=== PATIENT | female | born 1945 | race Two or more races ===

== ENCOUNTER 2020-12-22 17:37 | Inpatient (IN) | payer MEDICARE, OTHER ==
[~2020-12-22] VITALS: Ht 165.1 cm; Wt 57.2 kg
[2020-12-22] MEDS ORDERED: IV NS 0.9% 2,000 ML IV ONE (18:00)
--- NOTE | 2020-12-22 18:01 | NUR ---
MOVE SHEET SUBMITTED AND CALLED FOR TELE BED.
[2020-12-22 18:09] LABS: BASOPHILS % (AUTO) 0.1 % (0.0-2.0); EOSINOPHILS % (AUTO) 0.3 % (0.0-6.0); HEMATOCRIT 35 % (33-45); LYMPHOCYTES # (AUTO) 1.6 /CMM (0.8-4.8); LYMPHOCYTES % (AUTO) 8.9 % (20.0-44.0); MEAN CORPUSCULAR HGB CONC 32 g/dl (31.0-36.0); MEAN CORPUSCULAR VOLUME 82 fL (82-100); MONOCYTES # (AUTO) 1.5 /CMM (0.1-1.30); MONOCYTES % (AUTO) 8.6 % (2.0-12.0); NEUTROPHILS # (AUTO) 14.3 /CMM (1.8-8.9); NEUTROPHILS % (AUTO) 82.1 % (43.0-81.0); PLATELET COUNT (AUTO) 330 /CMM (150-450); RED BLOOD CELL COUNT(AUTO) 4.21 MIL/uL (4.0-5.2); WHITE BLOOD COUNT (AUTO) 17.5 K/uL (4.3-11.0)
--- NOTE | 2020-12-22 18:19 | NUR ---
pt to ct on [facility]
--- NOTE | 2020-12-22 18:24 | NUR ---
[facility] TO ER BED 7. AAOX2, LETHARGIC. NO IN RESP DISTRESS, BREATHING EVEN AND UNLABORED, SATTING 100ON 2LPM VIA NC. BROUGHT IN FOR ALTERED MENTAL STATUS, WEAKNESS AND HYPOXIA. PT IS REPORTED BASELINE AAOX3 BUT NOT AAOX2 WITH LETHARGY. PT IS REPORTED TO HAVE O2 SAT OF 88% BUT UPON RECEIVED PT IS SATTING 100% ON 2 LPM VIA NC. NO NEURO DEFICIT. ABLE TO FOLLOW SIMPLE COMMANDS. RECTAL TEMP NOTED AT 99.8. MD WAS AT THE BEDSIDE FOR EVAL. ORDERS RECEIVED, NOTED AND CARRIED OUT. IV LINE ALREADY PRESENT ON THE L HAND W/ 22 G. NW IV STARTED ON R AC 20G, BLOOD DRAWN AND GIVEN TO PHLEB AT BEDSIDE. PT ON MONITOR EKG DONE AT BEDSIDE
[2020-12-22 18:25] LABS: ACETAMINOPHEN < 10 ug/ml (10-30); ALANINE AMINOTRANSFERASE 27 U/L (12-78); ALBUMIN 2.7 g/dL (3.4-5.0); ALCOHOL, BLOOD < 3 mg/dL (0-0); ALKALINE PHOSPHATASE 100 U/L (46-116); ASPARTATE AMINOTRANSFERASE 58 U/L (15-37); BILIRUBIN,DIRECT 0.2 mg/dL (0.0-0.2); BILIRUBIN,TOTAL 0.8 mg/dL (0.2-1.0); CALCIUM, SERUM 8.5 mg/dL (8.5-10.1); CARBON DIOXIDE 23 mmol/L (21-32); CHLORIDE 103 mmol/L (98-107); GLUCOSE 86 mg/dL (74-106); POTASSIUM 4.3 mmol/L (3.5-5.1); SODIUM SERUM 138 mmol/L (136-145); TOTAL PROTEIN, SERUM 7.1 g/dL (6.4-8.2); UREA NITROGEN, BLOOD 67 mg/dL (7-18)
[2020-12-22] MEDS ORDERED: IOHEXOL-300 100 ML VIAL IV ONE (18:34)
[2020-12-22] MEDS ORDERED: IV NS 0.9% 250 ML IV ONE (18:35)
[2020-12-22] MEDS ORDERED: CT SWABBABLE VALVE TRANS SET 1 EA INFUS.SET MC ONE (18:35)
[2020-12-22 18:44] LABS: SERUM AMMONIA < 10 umol/L (11-32)
--- NOTE | 2020-12-22 18:55 | NUR ---
BACK FROM CT
--- NOTE | 2020-12-22 19:00 | NUR ---
URINE COLLECTED VIA IN AND OUT CATH WITH STRICT STERILE TECHNIQUE OBSERVED. COVID SWAB ALSO DONE AND SENT TO LAB
[2020-12-22 19:04] LABS: THYROID STIMULATING HORMONE 1.671 uIU/mL (0.358-3.74)
--- NOTE | 2020-12-22 19:20 | NUR ---
PT'S O2 REMOVED AND TOLERATING WELL WITHOUT IT. SATTING @ 100% ON RA
[2020-12-22 19:33] LABS: BILIRUBIN,URINE SMALL (NEGATIVE); COLOR,URINE YELLOW (YELLOW); LEUKOCYTE ESTERASE ,URINE Negative (NEGATIVE); NITRITE, URINE Negative (NEGATIVE); PROTEIN,URINE 30 mg/dl (NEGATIVE); UGLUCOSE Negative (NEGATIVE); UROBILINOGEN,URINE 0.2 EU/dL (0.2)
[2020-12-22 19:43] LABS: WBC,URINE 0-2 /HPF (0-3)
[2020-12-22 19:44] LABS: BACTERIA,URINE Rare /HPF (None Seen); SQUAMOUS EPITHELIAL CELL,UR 0-2 /HPF (None Seen); URINE AMORPHOUS URATE Few /HPF (None Seen)
[2020-12-22] MEDS ORDERED: CIPROFLOXACIN IV RTU 400 MG in PREMIX 1 EA IV SCH (20:00)
[2020-12-22] MEDS ORDERED: FLAGYL/NS RTU 500 MG/100 ML PIGGYBACK IV ONE (20:00)
[2020-12-22] MEDS ORDERED: METRONIDAZOLE 500MG/ NS 100ML 100 ML IV ONE (20:08)
[2020-12-22] MEDS ORDERED: CIPROFLOXACIN IV RTU 200 ML IV ONE (20:08)
--- NOTE | 2020-12-22 20:22 | NUR ---
REPORT GIVEN TO LINCOLN TANNER FOR LAKEISHA
[2020-12-22] MEDS ORDERED: Z GUARD REMEDY 2 OZ OINT TP PRN (20:30)
[2020-12-22] MEDS ORDERED: ZOLPIDEM TARTRATE 5 MG TABLET PO PRN (20:30)
[2020-12-22] MEDS ORDERED: ONDANSETRON HCL/PF 4 MG/2 ML VIAL IVP PRN (20:30)
[2020-12-22] MEDS ORDERED: MAGNESIUM HYDROXIDE 30 ML UDC PO PRN (20:30)
[2020-12-22] MEDS ORDERED: MORPHINE SULFATE INJ 2 MG/ML DISP.SYRIN IV PRN (20:30)
[2020-12-22] MEDS ORDERED: HYDROCODONE/APAP 5/325MG TABLET PO PRN (20:30)
[2020-12-22] MEDS ORDERED: MAG HYDROX/AL HYDROX/SIMETH 30 ML UDC PO PRN (20:30)
[2020-12-22 21:20] VITALS: BP 139/56
--- NOTE | 2020-12-22 21:20 | NUR ---
RN NOTE RECEIVED PATIENT FROM ER VIA EMMANUEL ACCOMPANIED BY ZOEY STARK AND ANOTHER ER STAFF; ADMITTING DIAGNOSIS OF POSSIBLE EARLY SEPSIS, COLITIS PRESENT ON ADMISSION, AND ACUTE ENCEPHALOPATHY, COVID PCR RESULTS PENDING. PATIENT IS CONFUSED, IN NO S/SX OF ACUTE DISTRESS AT THIS TIME. NO SOB NOTED. PATIENT'S BREATHING IS EVEN AND UNLABORED. SATURATION 100% ON ROOM AIR. SR ON THE MONITOR, HR IS 82. NOTED IV SITE AT RAC 20G, AND L HAND 22G(FROM FACILITY); ALL HUBS FLUSHING AND PATENT, NO S/S OF INFECTION OR INFILTRATION. PATIENT KEPT CLEAN , DRY AND COMFORTABLE. SEIZURE PRECAUTIONS, AND SAFETY MEASURES IMPLEMENTED. PATIENT BED ALARM IS ON. HEAD OF BED ELEVATED. BED IS LOCKED, IN LOWEST POSITION AND SIDE RAILS UP. CALL LIGHT WITHIN REACH OF THE PATIENT. ISOLATION PRECAUTIONS IN PLACE. WILL CONTINUE TO MONITOR AND REASSESS FOR ANY CHANGES. TELEPHONE CALL TO RYAN PALOMO AT [phone] TO VERIFY PATIENT FLU AND PNEUMONIA VACCINE STATUS, NO ANSWER AFTER TWO ATTEMPTS. WILL ATTEND TO ALL MD ADMITTING ORDERS.
--- NOTE | 2020-12-22 21:21 | NUR ---
pt trasnproted to unit on [facility] with emt and rn at bedside w/ acls protocol. nad noted during transport.
[2020-12-22] MEDS: ENOXAPARIN SODIUM 30 MG/0.3 ML DISP.SYRIN SQ SCH (22:23)
[2020-12-22] MEDS: IV NS 0.9% 1,000 ML IV PRN (22:24)
[2020-12-23] VITALS: BP 107/48
[2020-12-23 04:00] VITALS: BP 135/54
[2020-12-23] MEDS: METRONIDAZOLE 500MG/ NS 100ML 500 MG in PREMIX 1 EA IV SCH ×3 (04:35→20:17)
[2020-12-23 06:36] LABS: BASOPHILS % (AUTO) 0.2 % (0.0-2.0); EOSINOPHILS % (AUTO) 0.1 % (0.0-6.0); HEMATOCRIT 33 % (33-45); HEMOGLOBIN 10.5 g/dL (11.5-14.8); LYMPHOCYTES % (AUTO) 6.1 % (20.0-44.0); MEAN CORPUSCULAR HGB CONC 32 g/dl (31.0-36.0); MEAN CORPUSCULAR VOLUME 83 fL (82-100); MONOCYTES # (AUTO) 1.3 /CMM (0.1-1.30); MONOCYTES % (AUTO) 7.9 % (2.0-12.0); NEUTROPHILS # (AUTO) 13.8 /CMM (1.8-8.9); NEUTROPHILS % (AUTO) 85.7 % (43.0-81.0); PLATELET COUNT (AUTO) 305 /CMM (150-450); RED BLOOD CELL COUNT(AUTO) 4.01 MIL/uL (4.0-5.2); WHITE BLOOD COUNT (AUTO) 16.1 K/uL (4.3-11.0)
[2020-12-23 07:05] LABS: CALCIUM, SERUM 8.3 mg/dL (8.5-10.1); MAGNESIUM 2.6 mg/dL (1.8-2.4); PHOSPHORUS 3.1 mg/dL (2.5-4.9)
[2020-12-23] MEDS: PANTOPRAZOLE 40 MG TABLET.DR PO SCH (07:30)
--- NOTE | 2020-12-23 07:30 | NUR ---
MS RN AM NOTES RECEIVED PT IN BED, AAOX2, VERY LETHARGIC. FOLLOWS COMMAND, VERY WEAK. NO IN RESP DISTRESS, BREATHING EVEN AND UNLABORED, SATTING 100 ON ROOM AIR. DENIES PAIN, LEFT HAND G 22 IV ACCESS FLUSHES WELL, SITE CLEAR. RT AC G20 WITH NS AT 75 ML/HR INFUSING WELL, SITE CLEAR. BED REST FOR NOW. SEE NURSING FLOWSHEET FOR SKIN ISSUES. FULL LIQUID DIET FOR NOW. BED LOW LOCKED, CALL LIGHT WITHIN REACH. WILL CONT TO MONITOR.
[2020-12-23 08:00] VITALS: BP 155/63
[2020-12-23] MEDS ORDERED: ASPI-1169 PO (08:49)
[2020-12-23] MEDS ORDERED: MIRT-121 PO (08:49)
[2020-12-23] MEDS ORDERED: GLIM1TAB18 PO (08:49)
[2020-12-23] MEDS ORDERED: NA P133E RC (08:49)
[2020-12-23] MEDS ORDERED: MAG-55 PO (08:49)
[2020-12-23] MEDS ORDERED: ACET325T53 PO ×2 (08:49)
[2020-12-23] MEDS ORDERED: ATOR20TA PO (08:49)
[2020-12-23] MEDS ORDERED: BISA10SU11 RC (08:49)
[2020-12-23] MEDS ORDERED: DOCU-141 PO (08:49)
[2020-12-23] MEDS ORDERED: OLAN7.5T3 PO (08:49)
[2020-12-23] MEDS ORDERED: MAGN400O6 PO (08:49)
[2020-12-23] MEDS ORDERED: HYDR-4076 PO (08:49)
[2020-12-23] MEDS ORDERED: LISI40TA13 PO (08:49)
--- NOTE | 2020-12-23 09:30 | NUR ---
RN NOTES DUE MEDS GIVEN.
--- NOTE | 2020-12-23 10:20 | NUR ---
RN NOTES RELAYED TO DR. JOHN BOB, NEEDS MED RECONCILIATIONS DONE.
[2020-12-23] MEDS: CEFTRIAXONE 1 G in IV D5W 50 ML IV SCH (10:37)
[2020-12-23] MEDS: IV NS 0.9% 1,000 ML IV PRN (10:46)
[2020-12-23 16:00] VITALS: BP 148/52
--- NOTE | 2020-12-23 18:54 | NUR ---
MS RN CLOSING NOTES PT IN BED, AAOX2, VERY LETHARGIC. FOLLOWS COMMAND, VERY WEAK. NO IN RESP DISTRESS, BREATHING EVEN AND UNLABORED, SATTING 96 ON ROOM AIR. DENIES PAIN, LEFT HAND G 22 IV ACCESS FLUSHES WELL, SITE CLEAR. RT AC G20 WITH NS AT 75 ML/HR INFUSING WELL, SITE CLEAR. BED REST FOR NOW. FULL LIQUID DIET FOR NOW. BED LOW LOCKED, CALL LIGHT WITHIN REACH. ALL NEEDS MET FOR NOW. PM CARE DONE. NO OTHER SIGNIFICANT CHANGE IN CONDITION. WILL ENDORSE TO NEXT SHIFT. DR. JOHN BOB MADE AWARE THAT PT'S NEPHEW WISHES TO SPEAK TO HIM AND PHONE NUMBER GIVEN TO HIM. ALSO NEEDS MED RECON DONE. CHARGE NURSE ANSELMO AWARE.
--- NOTE | 2020-12-23 19:00 | NUR ---
RN NOTE RECEIVED PATIENT IN BED, CONFUSED, IN NO S/SX OF ACUTE DISTRESS AT THIS TIME. NO SOB NOTED. PATIENT'S BREATHING IS EVEN AND UNLABORED. SATURATION 97% ON ROOM AIR. HR IS 84. NOTED IV SITE AT RAC 20G, AND L HAND 22G; ALL HUBS FLUSHING AND PATENT, NO S/S OF INFECTION OR INFILTRATION WITH IV FLUID OF NS INFUSING AT 75 ML/HR. PER VIRAL STARK, PATIENT NEPHEW WANTED TO SPEAK WITH MD, FOLLOW UP MADE WITH DR BOB, AND WAS ACKNOWLEDGED. SAFETY MEASURES IMPLEMENTED. PATIENT BED ALARM IS ON. HEAD OF BED ELEVATED. BED IS LOCKED, IN LOWEST POSITION AND SIDE RAILS UP. CALL LIGHT WITHIN REACH OF THE PATIENT. WILL CONTINUE TO MONITOR AND REASSESS FOR ANY CHANGES.
[2020-12-23 20:00] VITALS: BP 143/59
[2020-12-23] MEDS: ENOXAPARIN SODIUM 30 MG/0.3 ML DISP.SYRIN SQ SCH (20:20)
--- NOTE | 2020-12-23 20:48 | NUR ---
RN NOTE DR BOB EVALUATED PATIENT AT BEDSIDE, ORDERS RECEIVED FOR NS 500 ML BOLUS, STAT ABG AND LACTIC ACID. GIS DATABASE ADMINISTRATORLINCOLN CHEEMA.
[2020-12-23] MEDS ORDERED: IV NS 0.9% 500 ML IV ONE (21:00)
[2020-12-23 21:23] LABS: ABG OXYGEN SATURATION 96.2 % (92.0-98.5); ABG PCO2 29.4 mmHg (35.0-45.0); ABG PH 7.451 (7.350-7.450); ABG PO2 78.9 mmHg (75.0-100.0); AaDO2 35.6 mmHg; COHb 0.3 % (0.5-1.5); MetHb 0.3 % (0.0-1.5); O2Hb 95.6 % (94.0-97.0); SITE, ABG Right Radial; VENT MODE, BG RA
[2020-12-23] MEDS: ATORVASTATIN 10 MG TABLET PO SCH (21:27)
--- NOTE | 2020-12-23 21:40 | NUR ---
RT NOTE ABG DONE. RESULTS GIVEN TO PRIMARY RN. PATIENT REMAINS STABLE ON ROOM AIR. SPO2 97%.
--- NOTE | 2020-12-23 21:49 | NUR ---
RN NOTE TELEPHONE CALL TO FAMILY, SPOKE WITH NEPHEW DEEPIKA, STATED HE SPOKE TO DR BOB ABOUT 30 MINUTES AGO. INSURANCE COLLECTOR KAREEM CHEEMA.
[2020-12-23] MEDS ORDERED: MIRTAZAPINE 15 MG TABLET PO SCH (22:00)
--- NOTE | 2020-12-23 22:30 | NUR ---
RN NOTE ABG AND LACTIC ACID RESULTED. RESULTS RELAYED TO DR BOB. WAS ACKNOWLEDGED WITH NO NEW ORDERS RECEIVED. AUTOMOBILE ENGINE ASSEMBLERLINCOLN CHEEMA.
--- NOTE | 2020-12-23 22:49 | NUR ---
RN NOTE PATIENT REMAINS IN ROOM IN STABLE CONDITION. REPORT GIVEN TO GINGER FOR CONTINUATION OF CARE Addendum: 12/23/20 at 2250 by FLORES PRADO RN REPORT WAS GIVEN TO SOLEDAD STARK FOR CONTINUATION OF CARE
[2020-12-24] MEDS: IV NS 0.9% 1,000 ML IV PRN (03:25)
[2020-12-24 04:00] VITALS: BP 149/61
[2020-12-24] MEDS: METRONIDAZOLE 500MG/ NS 100ML 500 MG in PREMIX 1 EA IV SCH ×3 (05:51→20:01)
[2020-12-24 06:37] LABS: BASOPHILS % (AUTO) 0.1 % (0.0-2.0); EOSINOPHILS % (AUTO) 0.2 % (0.0-6.0); HEMATOCRIT 34 % (33-45); HEMOGLOBIN 10.8 g/dL (11.5-14.8); LYMPHOCYTES # (AUTO) 1.4 /CMM (0.8-4.8); LYMPHOCYTES % (AUTO) 8.5 % (20.0-44.0); MEAN CORPUSCULAR HGB CONC 32 g/dl (31.0-36.0); MEAN CORPUSCULAR VOLUME 84 fL (82-100); MONOCYTES # (AUTO) 1.6 /CMM (0.1-1.30); MONOCYTES % (AUTO) 9.8 % (2.0-12.0); NEUTROPHILS # (AUTO) 13.3 /CMM (1.8-8.9); NEUTROPHILS % (AUTO) 81.4 % (43.0-81.0); PLATELET COUNT (AUTO) 321 /CMM (150-450); RED BLOOD CELL COUNT(AUTO) 4.12 MIL/uL (4.0-5.2); WHITE BLOOD COUNT (AUTO) 16.4 K/uL (4.3-11.0)
[2020-12-24 06:55] LABS: CALCIUM, SERUM 8.1 mg/dL (8.5-10.1); CREATININE 0.7 mg/dL (0.6-1.3); MAGNESIUM 2.3 mg/dL (1.8-2.4); PHOSPHORUS 2.6 mg/dL (2.5-4.9); POTASSIUM 3.8 mmol/L (3.5-5.1)
[2020-12-24 08:00] VITALS: BP_SYST 148; BP_SYST 151; BP_DIAS 63; BP_DIAS 65
[2020-12-24] MEDS: PANTOPRAZOLE 40 MG TABLET.DR PO SCH (09:43)
[2020-12-24] MEDS: ASPIRIN 81 MG TAB.CHEW PO SCH (09:43)
[2020-12-24] MEDS: LISINOPRIL (20MG) 20 MG TABLET PO SCH (09:44)
[2020-12-24] MEDS: CEFTRIAXONE 1 G in IV D5W 50 ML IV SCH (10:32)
[2020-12-24] MEDS: IV 1/2NS 1000 ML 1,000 ML IV PRN (11:06)
[2020-12-24 12:00] VITALS: BP 151/63
[2020-12-24 16:00] VITALS: BP 130/64
--- NOTE | 2020-12-24 19:10 | NUR ---
RN OPENING NOTE RECEIVED PATIENT IN BED RESTING EYES CLOSED ALERT ORIENTED X1 CONFUSED ON ROOM AIR O2:98% IV SITE IS ON RIGHT AC INTACT PATENT INCONTINENT TO BOWEL/BLADDER, SAFETY MEASURE IMPLEMENT BED IN LOW POSITION AND LOCKED,CONTINUE TO MONITOR.
--- NOTE | 2020-12-24 19:11 | NUR ---
RN NOTE PATIENT ON 1/2NS IV HYDRATION 75CC/HR CONTINUE TO MONITOR.
[2020-12-24] MEDS: ENOXAPARIN SODIUM 30 MG/0.3 ML DISP.SYRIN SQ SCH (20:08)
[2020-12-24] MEDS: ATORVASTATIN 10 MG TABLET PO SCH (21:49)
[2020-12-25] VITALS: BP 128/68
--- NOTE | 2020-12-25 00:17 | NUR ---
RN NOTE GAVE REPORT TO BON STARK FOR CONTINUATION OF CARE.
--- NOTE | 2020-12-25 00:20 | NUR ---
RECEIVED PATIENT RESTING COMFORTABLY IN BED. NO SIGNS OF RESPIRATORY DISTRESS. CALL LIGHT WITHIN REACH. ALL NEEDS ANTICIPATED.
[2020-12-25 04:00] VITALS: BP 148/66
[2020-12-25] MEDS: IV 1/2NS 1000 ML 1,000 ML IV PRN (04:13)
[2020-12-25] MEDS: METRONIDAZOLE 500MG/ NS 100ML 500 MG in PREMIX 1 EA IV SCH ×3 (04:16→20:07)
[2020-12-25 06:25] LABS: BASOPHILS % (AUTO) 0.2 % (0.0-2.0); EOSINOPHILS % (AUTO) 1.1 % (0.0-6.0); HEMATOCRIT 32 % (33-45); HEMOGLOBIN 10.1 g/dL (11.5-14.8); LYMPHOCYTES # (AUTO) 1.6 /CMM (0.8-4.8); LYMPHOCYTES % (AUTO) 12.9 % (20.0-44.0); MEAN CORPUSCULAR HGB CONC 31 g/dl (31.0-36.0); MEAN CORPUSCULAR VOLUME 83 fL (82-100); MONOCYTES # (AUTO) 1.6 /CMM (0.1-1.30); MONOCYTES % (AUTO) 13.2 % (2.0-12.0); NEUTROPHILS # (AUTO) 8.9 /CMM (1.8-8.9); NEUTROPHILS % (AUTO) 72.6 % (43.0-81.0); PLATELET COUNT (AUTO) 339 /CMM (150-450); WHITE BLOOD COUNT (AUTO) 12.3 K/uL (4.3-11.0)
[2020-12-25 06:41] LABS: CALCIUM, SERUM 8.1 mg/dL (8.5-10.1); CREATININE 0.7 mg/dL (0.6-1.3); PHOSPHORUS 2.3 mg/dL (2.5-4.9); POTASSIUM 3.1 mmol/L (3.5-5.1)
--- NOTE | 2020-12-25 06:50 | NUR ---
RN NOTE PATIENT ALERT AND ORIENTED X1. RESPIRATIONS EVEN AND UNLABORED, ON ROOM AIR. IV ACCESS RIGHT WRIST #20 AND LEFT WRIST #22 PATENT AND INTACT. 1/2 NS @ 7CC/HR RUNNING, NO SIGNS OF INFILTRATION. KEPT CLEAN AND DRY. BED LOCKED AND IN LOWEST POSITION. CALL LIGHT WITHIN REACH. WILL ENDORSE TO AM SHIFT.
--- NOTE | 2020-12-25 07:10 | NUR ---
EN OPENING NOTE RECEIVED REPORT FROM PM NURSE.PATIENT IN BED ALERT AND ORIENTED X1. RESPIRATIONS EVEN AND UNLABORED, ON ROOM AIR. NO SOB NO DISTRESS NOTED.IV ACCESS RIGHT WRIST #20 AND LEFT WRIST #22 PATENT AND INTACT. 1/2 NS @ 7CC/HR RUNNING, NO SIGNS OF INFILTRATION. PATIENT IS WEAK.NO C/O PAIN.ABLE TO MOVE EXTREMITIES .KEPT CLEAN AND DRY. BED LOCKED AND IN LOWEST POSITION. CALL LIGHT WITHIN REACH. WILL CONTINUE TO MONITOR.
[2020-12-25] MEDS: PANTOPRAZOLE 40 MG TABLET.DR PO SCH (07:58)
[2020-12-25 08:00] VITALS: BP 111/63
--- NOTE | 2020-12-25 08:15 | NUR ---
RN NOTE BED SIDE SWALLOW DONE.PATIENT IS COUGHING WITH SIP OF WATER.HOLDING IN MOUTH.SUCTION DONE.VITAL SIGNS STABLE.AWAITING SWALLOW EVAL.WILL CONTINUE O MONITOR.HOLDING PO MEDS.
--- NOTE | 2020-12-25 08:45 | NUR ---
RN NOTE PATIENT TAKEN FOR HEAD CT AND BACK TO UNIT IN STABLE CONDITION.WILL CONTINUE TO MONITOR.
[2020-12-25] MEDS: LISINOPRIL (20MG) 20 MG TABLET PO SCH (09:00)
[2020-12-25] MEDS: ASPIRIN 81 MG TAB.CHEW PO SCH (09:00)
[2020-12-25] MEDS: IV D5W 1,000 ML IV PRN (09:06)
--- NOTE | 2020-12-25 09:38 | NUR ---
RN NOTE SEEN BY TATE,MADE AWARE ABOUT PATIENT CONDITION WITH CT HEAD RESULT AND MADE AWARE PATIENT FAILED IN SWALLOW EVAL.OK TO INSERT NGT AND START FIBERSOURCE @30ML/HR WITH GOAL OF 50ML/HR.
--- NOTE | 2020-12-25 09:48 | NUR ---
RN NOTE RECEIVED CALL FROM DIETITIAN OFFICE TOLD THAT FIBERSOURCE IS NOT AVAILABLE.EQUIVALENT IS JEVITY 1.2.PLACED NEW ORDER.
[2020-12-25] MEDS ORDERED: NUTRITIONAL SUPPLEMENT/FIBER 250 ML CAN GT PRN (10:00)
[2020-12-25] MEDS: CEFTRIAXONE 1 G in IV D5W 50 ML IV SCH (10:35)
[2020-12-25] MEDS ORDERED: NEUTRA PHOS 1 POWD.PACKET GT ONE (12:00)
[2020-12-25] MEDS: POTASSIUM CHLORIDE 20 MEQ TAB.PRT.SR PO SCH ×2 (12:29→13:40)
[2020-12-25] MEDS: JEVITY 1.2 CAL 1,000 ML BOTTLE GT PRN (12:31)
[2020-12-25] MEDS: ACETAMINOPHEN 325 MG TABLET PO PRN (12:38)
--- NOTE | 2020-12-25 13:00 | NUR ---
RN NOTE NGT INSERTED. CHECKED PLACEMENT WITH 2 RN.STARTED GT FEEDING.WILL CONTINUE TO MONITOR.LOW GRADE FEVER.PRN MEDS GIVEN.
[2020-12-25 16:00] VITALS: BP 161/74
[2020-12-25] MEDS: hydrALAZINE HCL 25 MG TABLET PO PRN (17:03)
[2020-12-25 18:08] VITALS: BP 145/70
--- NOTE | 2020-12-25 19:00 | NUR ---
RN OPENING NOTE RECEIVED PATIENT IN BED RESTING ALERT ORIENTED X1 CONFUSED ON ROOM AIR O2:98% IV SITE IS ON LEFT WRIST AND RIGHT WRIST PATENT INTACT IV D5W 75CC/HR RUNNING,ON NGT FEEDING JEVITY 1.2 30CC/HR CHECKED PLACEMENT IN PLACE NO RESIDUAL NOTED,HEAD OF THE BED ELEVATED,SAFETY MEASURE IMPLEMENT BED IN LOW POSITION AND LOCKED CONTINUE TO MONITOR.
--- NOTE | 2020-12-25 19:12 | NUR ---
RN CLOSING NOTE PATIENT IN BED IN STABLE CONDITION.ONGOING GT FEEDING.UPDATED FAMILY ABOUT PATIENT CARE.SAFETY AND ASPIRATION MEASURES IN PLACE.ENDORSED TO PM NURSE FOR LAKEISHA.
[2020-12-25] MEDS: ENOXAPARIN SODIUM 30 MG/0.3 ML DISP.SYRIN SQ SCH (20:07)
[2020-12-25] MEDS: ATORVASTATIN 10 MG TABLET PO SCH (21:47)
--- NOTE | 2020-12-25 23:12 | NUR ---
RN NOTE GAVE REPORT TO LOBO STARK FOR CONTINUATION OF CARE.
[2020-12-26] MEDS: IV D5W 1,000 ML IV PRN ×2 (02:02→20:26)
[2020-12-26 04:00] VITALS: BP 144/69
[2020-12-26] MEDS: METRONIDAZOLE 500MG/ NS 100ML 500 MG in PREMIX 1 EA IV SCH ×3 (05:15→21:09)
[2020-12-26] MEDS: ACETAMINOPHEN 325 MG TABLET PO PRN (05:16)
[2020-12-26 06:32] LABS: BASOPHILS % (AUTO) 0.4 % (0.0-2.0); EOSINOPHILS % (AUTO) 1.3 % (0.0-6.0); HEMATOCRIT 39 % (33-45); HEMOGLOBIN 12.3 g/dL (11.5-14.8); LYMPHOCYTES # (AUTO) 1.6 /CMM (0.8-4.8); LYMPHOCYTES % (AUTO) 15.5 % (20.0-44.0); MEAN CORPUSCULAR HGB CONC 31 g/dl (31.0-36.0); MEAN CORPUSCULAR VOLUME 84 fL (82-100); MONOCYTES # (AUTO) 1.7 /CMM (0.1-1.30); NEUTROPHILS # (AUTO) 6.7 /CMM (1.8-8.9); NEUTROPHILS % (AUTO) 65.8 % (43.0-81.0); PLATELET COUNT (AUTO) 324 /CMM (150-450); RED BLOOD CELL COUNT(AUTO) 4.68 MIL/uL (4.0-5.2); WHITE BLOOD COUNT (AUTO) 10.2 K/uL (4.3-11.0)
[2020-12-26 07:05] LABS: CALCIUM, SERUM 8.2 mg/dL (8.5-10.1); CREATININE 0.8 mg/dL (0.6-1.3); MAGNESIUM 1.9 mg/dL (1.8-2.4); PHOSPHORUS 2.7 mg/dL (2.5-4.9); POTASSIUM 3.9 mmol/L (3.5-5.1)
[2020-12-26] MEDS: PANTOPRAZOLE 40 MG TABLET.DR PO SCH (07:54)
[2020-12-26 07:59] LABS: BAND % (MANUAL) 1 % (0.0-5.0); EOSINOPHILS % (MANUAL) 2 % (0-4); LYMPHOCYTES % (MANUAL) 15 % (16-48); MONOCYTES % (MANUAL) 18 % (0-11.0); NEUTROPHILS % (MANUAL) 64 (42-76)
[2020-12-26 08:00] VITALS: BP_SYST 158; BP_SYST 258; BP_DIAS 84
--- NOTE | 2020-12-26 08:00 | NUR ---
RN MS NOTE PATIENT OBSERVED ON BED, AWAKE, RESPONSIVE TO TOUCH, UNABLE TO VERBALIZE NEEDS, ON NGT FEEDING JEVITY 1.2 @ 30CC/HR WITH GOAL OF 50CC/HR PATENT UPON AUSCULTATION, IV PATENT INFUSING WELL, BLADDER SCAN 18H, EVEN AND UNLABORED RESPIRATION, HOB ELEVATED FOR ASPIRATION PRECAUTION, WILL CONTINUE TO MONITOR RESIDENT, BED LOW,CALL LIGHT WITHIN REACH, SAFETY MEASURES OBSERVED.
--- NOTE | 2020-12-26 09:04 | NUR ---
MS RN NOTE ST AT BEDSIDE STILL NOT PASS SWALLOW EVAL ,WILL F\U WITH
[2020-12-26] MEDS: LISINOPRIL (20MG) 20 MG TABLET PO SCH (09:32)
[2020-12-26] MEDS: ASPIRIN 81 MG TAB.CHEW PO SCH (09:32)
[2020-12-26] MEDS: CEFTRIAXONE 1 G in IV D5W 50 ML IV SCH (09:35)
--- NOTE | 2020-12-26 10:23 | NUR ---
WOUND CARE CONSULT: PT PRESENTS WITH SACRAL SCARRING AND PERIANAL REDNESS, PRESENT ON ADMISSION. RECOMMENDATIONS MADE FOR SKIN PROTECTION. DISCUSSED WITH NURSING STAFF. MURRAY ISOFLEX LOW AIRLOSS BED TO BE PLACED. MD IN AGREEMENT WITH PLAN OF CARE.
--- NOTE | 2020-12-26 11:08 | NUR ---
MS RN NOTE PT AT BEDSIDE PT EXERCISE DONE ON BED
[2020-12-26 12:00] VITALS: BP 151/78
--- NOTE | 2020-12-26 13:00 | NUR ---
MS RN NOTE NEREIDA STARK CONSUMER LOAN OFFICER AT BEDSIDE AWARE THAT PATIENT DID NOT PASS SWALLOW EVAL WILL ORDER PEG PLACEMENT TURN REPOSITION Q2 HOUR ,WILL CONT TO MONITOR CLOSELY
--- NOTE | 2020-12-26 15:53 | NUR ---
MS RN NOTE SPOKE WITH BROTHER CONSENT OBTAINED ORDERED FOR PEG PLACEMENT
[2020-12-26 16:00] VITALS: BP 138/78
[2020-12-26] MEDS: JEVITY 1.2 CAL 1,000 ML BOTTLE GT PRN (16:22)
--- NOTE | 2020-12-26 18:50 | NUR ---
television writer note patient in bed , all needs attended with ng tube to feeding as ordered keep hob elevated at ll time ,no.residual noted npo after mid night , on ivf as ordered bed in lowest and locked position, will cont to monitor
[2020-12-26 20:00] VITALS: BP 129/65
--- NOTE | 2020-12-26 20:00 | NUR ---
MS RN NOTE PT IN BED ASLEEP, AROUSABLE. NOT ABLE TO TALK. NO DISTRESS OR DISCOMFORT NOTED. NO S/S OF PAIN NOTED. KEPT HER DRY AND CLEAN. NGT INTACT AND PATENT INFUSING JEVITY AT 40 ML/HR, 0 ML RESIDUAL NOTED. IVF D5W INFUSING AT 75 ML/HR, NO S/S OF INFILTRATION NOTED. ALL NEEDS ATTENDED. SIDE RAILS UP X 2 AND CALL LIGHT WITH IN REACH. VSS. CONTINUE TO MONITOR HER.
[2020-12-26] MEDS: ENOXAPARIN SODIUM 30 MG/0.3 ML DISP.SYRIN SQ SCH (21:00)
[2020-12-26] MEDS: ATORVASTATIN 10 MG TABLET PO SCH (21:09)
--- NOTE | 2020-12-26 23:38 | NUR ---
MS RN NOTE PT ENDORSE TO NURSE DRU FOR CONTINUE TO CARE.
[2020-12-27 04:00] VITALS: BP 110/61
[2020-12-27] MEDS: METRONIDAZOLE 500MG/ NS 100ML 500 MG in PREMIX 1 EA IV SCH ×3 (04:40→21:03)
[2020-12-27 06:29] LABS: BASOPHILS % (AUTO) 0.2 % (0.0-2.0); EOSINOPHILS % (AUTO) 1.5 % (0.0-6.0); HEMATOCRIT 33 % (33-45); HEMOGLOBIN 10.7 g/dL (11.5-14.8); LYMPHOCYTES # (AUTO) 1.9 /CMM (0.8-4.8); LYMPHOCYTES % (AUTO) 17.3 % (20.0-44.0); MEAN CORPUSCULAR HGB CONC 33 g/dl (31.0-36.0); MEAN CORPUSCULAR VOLUME 82 fL (82-100); MONOCYTES # (AUTO) 1.6 /CMM (0.1-1.30); MONOCYTES % (AUTO) 14.7 % (2.0-12.0); NEUTROPHILS # (AUTO) 7.3 /CMM (1.8-8.9); NEUTROPHILS % (AUTO) 66.3 % (43.0-81.0); PLATELET COUNT (AUTO) 331 /CMM (150-450); RED BLOOD CELL COUNT(AUTO) 4.02 MIL/uL (4.0-5.2)
--- NOTE | 2020-12-27 06:50 | NUR ---
MS/RN CLOSING NOTES PATIENT IN BED RESTIN, NOT ABLE TO TALK. NO DISTRESS OR DISCOMFORT NOTED. KEPT HER DRY AND CLEAN. NGT INTACT PATIENT NPO S/P MIDNIGHT. IVF D5W INFUSING AT 75 ML/HR, NO S/S OF INFILTRATION NOTED. ALL NEEDS ATTENDED AND MET DURING SHIFT. SAFETY MEASURES ARE IN PLACE, SIDE RAILS UP X 2 AND CALL LIGHT WITH IN REACH. WILL ENDORSE CARE TO DAY SHIFT NURSE.
[2020-12-27 06:54] LABS: BILIRUBIN,TOTAL 0.3 mg/dL (0.2-1.0); CALCIUM, SERUM 7.7 mg/dL (8.5-10.1); CREATININE 0.6 mg/dL (0.6-1.3); MAGNESIUM 1.5 mg/dL (1.8-2.4); PHOSPHORUS 3.5 mg/dL (2.5-4.9); TOTAL PROTEIN, SERUM 5.7 g/dL (6.4-8.2)
--- NOTE | 2020-12-27 07:20 | NUR ---
RN OPENING NOTES PATIENT IN BED RESTING IN SEMI-FOWLERS POSITION. PATIENT IN NO DISTRESS OR DISCOMFORT NOTED. NGT INTACT PATIENT NPO S/P MIDNIGHT. IVF D5W INFUSING AT 75 ML/HR, NO S/S OF INFILTRATION NOTED. SAFETY PRECAUTIONS IMPLEMENTED, SIDE RAILS UP X 2, CALL LIGHT WITHIN REACH, BED LOCKED IN LOWEST POSITION. WILL CONTINUE TO MONITOR AND PROVIDE CARE THROUGHOUT SHIFT.
[2020-12-27] MEDS: PANTOPRAZOLE 40 MG TABLET.DR PO SCH (07:30)
[2020-12-27] MEDS: Magnesium 1GM/D5W 100ML PREMIX 100 ML IV SCH ×2 (08:42→09:58)
[2020-12-27] MEDS: POTASSIUM CL. PREMIX PERIPHER. 50 ML IV SCH ×6 (08:43→16:44)
[2020-12-27] MEDS: LISINOPRIL (20MG) 20 MG TABLET PO SCH (09:00)
[2020-12-27] MEDS: ASPIRIN 81 MG TAB.CHEW PO SCH (09:00)
--- NOTE | 2020-12-27 09:03 | NUR ---
RN MS NOTE BREEDER SERVICE TECHNICIAN Maria De Jesus ROGER AT BEDSIDE, HOLD PO/NGT MEDICATION FOR AM MEDICATION.
[2020-12-27] MEDS: IV D5/0.45 NACL 1,000 ML IV PRN (09:54)
[2020-12-27] MEDS: CEFTRIAXONE 1 G in IV D5W 50 ML IV SCH (11:09)
[2020-12-27 12:00] VITALS: BP 143/62
[2020-12-27] MEDS: JEVITY 1.2 CAL 1,000 ML BOTTLE GT PRN (14:57)
--- NOTE | 2020-12-27 15:08 | NUR ---
MANAGER RAIL NOTE NEREIDA FLORES AT BEDSIDE, TALKED TO FAMILY MEMBER REGARDING PEG TUBE PLACEMENT FOR TOMORROW 0730AM, ORDERED TO RESUME NGT AND MEDICATION UNTIL MIDNIGHT, NPO POST MIDNIGHT FOR PEG TUBE PLACEMENT ON AM.
[2020-12-27] MEDS: hydrALAZINE HCL 25 MG TABLET PO PRN (16:08)
--- NOTE | 2020-12-27 19:34 | NUR ---
RN CLOSING NOTES PATIENT IN BED RESTING IN SEMI-FOWLERS POSITION. PATIENT IN NO DISTRESS OR DISCOMFORT NOTED. NGT INTACT PATIENT NPO S/P MIDNIGHT. IVF D5W INFUSING AT 75 ML/HR, NO S/S OF INFILTRATION NOTED. SAFETY PRECAUTIONS IMPLEMENTED, SIDE RAILS UP X 2, CALL LIGHT WITHIN REACH, BED LOCKED IN LOWEST POSITION. WILL ENDORSE CARE TO UPCOMING SHIFT.
--- NOTE | 2020-12-27 19:35 | NUR ---
RN NOTE RECEIVED PATIENT IN BED, CONFUSED, IN NO S/SX OF ACUTE DISTRESS AT THIS TIME. NO SOB NOTED. PATIENT'S BREATHING IS EVEN AND UNLABORED. SATURATION 98% ON ROOM AIR, HR IS 72. NOTED IV SITE AT L WRIST 22G, PATENT AND FLUSHING WELL, NO S/S OF INFECTION OR INFILTRATION. NOTED NG TUBE AT L NARE, POSITIVE PLACEMENT CONFIRMED BY AUSCULTATION AND ASPIRATION, NO RESIDUAL NOTED, WITH ONGOING TUBE FEEDING OF JEVITY 1.2 LORNA AT 30 ML/HR WITH A GOAL OF 50 ML/HR. SAFETY MEASURES IMPLEMENTED. PATIENT BED ALARM IS ON. HEAD OF BED ELEVATED. BED IS LOCKED, IN LOWEST POSITION AND SIDE RAILS UP. CALL LIGHT WITHIN REACH OF THE PATIENT. WILL CONTINUE TO MONITOR AND REASSESS FOR ANY CHANGES.
[2020-12-27 20:00] VITALS: BP 139/65
[2020-12-27] MEDS: ENOXAPARIN SODIUM 30 MG/0.3 ML DISP.SYRIN SQ SCH (21:00)
--- NOTE | 2020-12-27 21:00 | NUR ---
RN NOTE PATIENT HAS SCHEDULED DOSE OF ENOXAPARIN 30 MG AT 2100, DR BOB WAS NOTIFIED PT HAS SCHEDULED PROCEDURE TOMORROW. DR BOB ACKNOWLEDGED AND ORDERED TO HOLD OFF DOSE. SUPERVISOR INDUSTRIAL GARMENT MADE AWARE.
[2020-12-27] MEDS: ATORVASTATIN 10 MG TABLET PO SCH (21:03)
--- NOTE | 2020-12-27 22:00 | NUR ---
RN NOTE TELEPHONE CALL FROM PATIENT'S FAMILY, SPOKE WITH DEEPIKA [phone], CONFIRMING MD TO PERFORM PROCEDURE SCHEDULED TOMORROW 12/28/2020, TOLD HIM PER SCHEDULE PROVIDED TO CHARGE NURSE, PERFORMING MD IS DR CORDOBA.
--- NOTE | 2020-12-28 | NUR ---
RN NOTE TUBE FEEDING STOPPED, PLACED PATIENT ON NPO PER ORDERS, DUE TO PEG TUBE PLACEMENT SCHEDULED 0700.
[2020-12-28 04:00] VITALS: BP 154/80
[2020-12-28] MEDS: METRONIDAZOLE 500MG/ NS 100ML 500 MG in PREMIX 1 EA IV SCH ×3 (04:28→21:40)
[2020-12-28] MEDS: ACETAMINOPHEN 325 MG TABLET PO PRN ×2 (04:59→22:22)
[2020-12-28 06:02] LABS: BASOPHILS % (AUTO) 0.2 % (0.0-2.0); EOSINOPHILS % (AUTO) 1.6 % (0.0-6.0); HEMATOCRIT 34 % (33-45); LYMPHOCYTES # (AUTO) 1.9 /CMM (0.8-4.8); LYMPHOCYTES % (AUTO) 15.2 % (20.0-44.0); MEAN CORPUSCULAR HGB CONC 32 g/dl (31.0-36.0); MEAN CORPUSCULAR VOLUME 81 fL (82-100); MONOCYTES # (AUTO) 1.5 /CMM (0.1-1.30); MONOCYTES % (AUTO) 12.3 % (2.0-12.0); NEUTROPHILS # (AUTO) 8.9 /CMM (1.8-8.9); NEUTROPHILS % (AUTO) 70.7 % (43.0-81.0); PLATELET COUNT (AUTO) 354 /CMM (150-450); RED BLOOD CELL COUNT(AUTO) 4.21 MIL/uL (4.0-5.2); WHITE BLOOD COUNT (AUTO) 12.6 K/uL (4.3-11.0)
--- NOTE | 2020-12-28 06:57 | NUR ---
RN NOTE PATIENT SENT TO OR VIA MEDICAL BED ACCOMPANIED BY LORENA STARK AND 3 OTHER ER STAFF IN STABLE CONDITION. CONSENTS SIGNED, PREOP CHECKLIST COMPLETED.
[2020-12-28 07:53] LABS: CALCIUM, SERUM 7.8 mg/dL (8.5-10.1); CARBON DIOXIDE 25 mmol/L (21-32); CHLORIDE 104 mmol/L (98-107); CREATININE 0.5 mg/dL (0.6-1.3); GLUCOSE 157 mg/dL (74-106); MAGNESIUM 1.7 mg/dL (1.8-2.4); PHOSPHORUS 3.4 mg/dL (2.5-4.9); POTASSIUM 3.8 mmol/L (3.5-5.1); SODIUM SERUM 139 mmol/L (136-145); UREA NITROGEN, BLOOD 9 mg/dL (7-18)
[2020-12-28 08:00] VITALS: BP 135/70
[2020-12-28] MEDS ORDERED: Magnesium 1GM/D5W 100ML PREMIX 100 ML IV SCH (08:00)
[2020-12-28] MEDS: PANTOPRAZOLE 40 MG TABLET.DR PO SCH (08:54)
[2020-12-28] MEDS: ASPIRIN 81 MG TAB.CHEW PO SCH (08:54)
[2020-12-28] MEDS: LISINOPRIL (20MG) 20 MG TABLET PO SCH (09:00)
[2020-12-28] MEDS: CEFTRIAXONE 1 G in IV D5W 50 ML IV SCH (09:05)
[2020-12-28 15:13] VITALS: BP 150/75
--- NOTE | 2020-12-28 19:30 | NUR ---
RN OPENING NOTES: RECEIVED NON VERBAL PT IN BED RESTING COMFORTABLY. PATIENT IN NO S/SX OF ACUTE DISTRESS AT THIS TIME. NO SOB NOTED. PATIENT'S BREATHING IS EVEN AND UNLABORED. PATIENT IS ON ROOM AIR ; TOLERATING WELL WITH 02 SAT @98% AT TIME OF RECEIVED. PATIENT ON TELE MONITORING READING SINUS RHYTHM HR IS @70s AT THE TIME OF RECEIVED. PT IS S/P G TUBE PLACEMENT TODAY; G TUBE FLUSHING AND PATENT; SITE CLEAN DRY AND INTACT; NO RESIDUAL NOTED; CLAMPED. CURRENTLY ON NPO. NOTED IV SITE ON R HAND #20; PATENT, INTACT AND FLUSHING WELL; NO S/S OF INFECTION OR INFILTRATION. WITH IV FLUID RUNNING ORDERED. SAFETY MEASURES HAVE BEEN PROVIDED AND IMPLEMENTED. PATIENT BED ALARM IS ON. HEAD OF BED ELEVATED. BED IS LOCKED, IN LOWEST POSITION AND SIDE RAILS UP. CALL LIGHT WITHIN REACH OF THE PATIENT. APPLICABLE ISOLATION PRECAUTIONS IN PLACE. WILL CONTINUE TO MONITOR AND REASSESS FOR ANY CHANGES AND WILL CARRY OUT ANY ONGOING AND ACTIVE MD ORDER.
[2020-12-28 20:00] VITALS: BP 149/70
[2020-12-28] MEDS: IV D5/0.45 NACL 1,000 ML IV PRN (20:12)
[2020-12-28] MEDS: ATORVASTATIN 10 MG TABLET PO SCH (21:40)
[2020-12-28] MEDS: ENOXAPARIN SODIUM 30 MG/0.3 ML DISP.SYRIN SQ SCH (21:44)
--- NOTE | 2020-12-28 22:22 | NUR ---
RN NOTES LATE SCAN OF PRN MEDICATION. NOTED PT'S TEMP 99.9@1999. PRN MEDS GIVEN AND COOLING MEASURES PROVIDED. MILL OPERATOR HELPER MADE AWARE. WILL RE-EVALUATE AFTER 30 MINUTES- 1 HOUR. WILL CONTINUE TO MONITOR
--- NOTE | 2020-12-29 03:30 | NUR ---
RN NOTES PATIENT REMAINS IN NO ACUTE RESPIRATORY DISTRESS AT THIS TIME, NO CHANGES TO CONDITION/STATUS. AM PATIENT CARE DONE. JEWELRY ENAMELER WELL AWARE. WILL CONTINUE TO MONITOR AND REASSESS FOR ANY CHANGES THROUGHOUT THE SHIFT
[2020-12-29 04:00] VITALS: BP 149/85
[2020-12-29] MEDS: METRONIDAZOLE 500MG/ NS 100ML 500 MG in PREMIX 1 EA IV SCH (04:00)
[2020-12-29 06:42] LABS: BASOPHILS % (AUTO) 0.2 % (0.0-2.0); HEMATOCRIT 31 % (33-45); HEMOGLOBIN 10.2 g/dL (11.5-14.8); LYMPHOCYTES # (AUTO) 1.6 /CMM (0.8-4.8); LYMPHOCYTES % (AUTO) 14.4 % (20.0-44.0); MEAN CORPUSCULAR HGB CONC 32 g/dl (31.0-36.0); MEAN CORPUSCULAR VOLUME 82 fL (82-100); MONOCYTES # (AUTO) 1.1 /CMM (0.1-1.30); MONOCYTES % (AUTO) 10.2 % (2.0-12.0); NEUTROPHILS # (AUTO) 8.1 /CMM (1.8-8.9); NEUTROPHILS % (AUTO) 74.2 % (43.0-81.0); PLATELET COUNT (AUTO) 345 /CMM (150-450); RED BLOOD CELL COUNT(AUTO) 3.85 MIL/uL (4.0-5.2)
[2020-12-29 06:49] LABS: ALANINE AMINOTRANSFERASE 46 U/L (12-78); ALBUMIN 1.9 g/dL (3.4-5.0); ALKALINE PHOSPHATASE 93 U/L (46-116); ASPARTATE AMINOTRANSFERASE 60 U/L (15-37); BILIRUBIN,TOTAL 0.4 mg/dL (0.2-1.0); CALCIUM, SERUM 7.7 mg/dL (8.5-10.1); CARBON DIOXIDE 26 mmol/L (21-32); CHLORIDE 103 mmol/L (98-107); CREATININE 0.5 mg/dL (0.6-1.3); GLUCOSE 126 mg/dL (74-106); MAGNESIUM 1.7 mg/dL (1.8-2.4); PHOSPHORUS 3.3 mg/dL (2.5-4.9); POTASSIUM 3.3 mmol/L (3.5-5.1); SODIUM SERUM 135 mmol/L (136-145); TOTAL PROTEIN, SERUM 5.7 g/dL (6.4-8.2); UREA NITROGEN, BLOOD 8 mg/dL (7-18)
--- NOTE | 2020-12-29 06:55 | NUR ---
RN CLOSING NOTE: PATIENT REMAINS IN ROOM IN NO SIGNS OF RESPIRATORY DISTRESS, PATIENT STILL ON ROOM AIR;TOLERATING WELL SATURATING @ >95% SP02. SAFETY MEASURES IMPLEMENTED, BED IN LOWEST POSITION, LOCKED, SIDE RAILS UP, CALL LIGHT WITHIN REACH. ALL NEEDS AND ORDERS ADDRESSED DURING THE SHIFT. IV ACCESS MAINTAINED INTACT, SECURED AND FLUSHING WELL. ALL DUE MEDS GIVEN ORDERED & SCHEDULED ; PATIENT TOLERATED WELL. PATIENT KEPT CLEAN AND COMFORTABLE WITHIN THE SHIFT. PATIENT ENDORSED TO INCOMING SHIFT RN WITH STABLE VITAL SIGN AND FOR CONTINUITY OF CARE; AND TO FOLLOW UP WITH MD REGARDING TUBE FEEDING ORDER. AM DIRECTOR DIVERSITY MADE AWARE.
--- NOTE | 2020-12-29 07:20 | NUR ---
RN OPENING NOTE PATIENT RECEIVED IN ROOM RESTING IN SEMI-FOWLERS POSITION. PATIENT ON ROOM AIR TOLERATING WELL. PATIENT IN NO SIGNS OF RESPIRATORY DISTRESS AND NO COMPLAINTS OF SOB. RIGHT HAND IV ACCESS #20 INTACT AND PATENT. SAFETY PRECAUTIONS IMPLEMENTED, SIDE RAILS UP X2, BED LOCKED AND IN LOWEST POSITION, CALL LIGHT WITHIN REACH. WILL CONTINUE TO MONITOR AND PROVIDE CARE THROUGHOUT SHIFT.
[2020-12-29] MEDS: ASPIRIN 81 MG TAB.CHEW PO SCH (09:22)
[2020-12-29] MEDS: PANTOPRAZOLE 40 MG TABLET.DR PO SCH (09:22)
[2020-12-29] MEDS: LISINOPRIL (20MG) 20 MG TABLET PO SCH (09:23)
[2020-12-29] MEDS: CEFTRIAXONE 1 G in IV D5W 50 ML IV SCH (09:27)
[2020-12-29 12:00] VITALS: BP 152/74
[2020-12-29] MEDS: Magnesium 1GM/D5W 100ML PREMIX 100 ML IV SCH ×2 (12:32→13:00)
[2020-12-29] MEDS: POTASSIUM CL. PREMIX PERIPHER. 50 ML IV SCH ×2 (12:36→13:00)
[2020-12-29] MEDS ORDERED: LACT-209 GT (12:56)
[2020-12-29] MEDS ORDERED: METRONIDAZOLE 500 MG TABLET PO SCH (13:00)
[2020-12-29] MEDS: JEVITY 1.2 CAL 1,000 ML BOTTLE GT PRN (13:39)
--- NOTE | 2020-12-29 17:01 | NUR ---
patient discharged from hospital in stable condition. patient discharge instructions and paperwork provided for client and snf. report called and given to rn at [facility]. care transferred over to [facility] ambulance for transportation.
== END 2020-12-29 17:00 | DRG 871 ==
LOC: ER 17:45 → TELE1 20:09 → MEDSG1 12-23 06:00
PROVIDERS: ADMIT Nurse Practitioner Acute Care; ATTEND Hospitalist
PROC: 0DJ08ZZ Inspection of Upper Intestinal Tract, Via Natural or Artificial Opening Endoscopic (ICD-10-PCS; principal; 2020-12-27)
DX: A41.9 Sepsis, unspecified organism (principal); K65.9 Peritonitis, unspecified; N17.0 Acute kidney failure with tubular necrosis; G93.41 Metabolic encephalopathy; E43 Unspecified severe protein-calorie malnutrition; E87.2 Acidosis; E87.0 Hyperosmolality and hypernatremia; K52.9 Noninfective gastroenteritis and colitis, unspecified; E78.5 Hyperlipidemia, unspecified; E86.0 Dehydration; I10 Essential (primary) hypertension; F25.9 Schizoaffective disorder, unspecified; F32.9 Major depressive disorder, single episode, unspecified; M19.90 Unspecified osteoarthritis, unspecified site; Z20.822 Contact with and (suspected) exposure to COVID-19; K29.70 Gastritis, unspecified, without bleeding; K76.0 Fatty (change of) liver, not elsewhere classified; E83.42 Hypomagnesemia; E87.6 Hypokalemia; M61.9 Calcification and ossification of muscle, unspecified; R13.10 Dysphagia, unspecified
CPT/HCPCS: 36415; 36600; 43246; 70450-TC; 71045-TC; 76770-TC; 80048-TC; 80053-TC; 80061-TC; 80076-TC; 81001; 82140-TC; 83605-TC; 83735-TC; 84100-TC; 84443-TC; 84484-TC; 85025-TC; 85730-TC; 86850-TC; 87040-TC; 87081-TC; 92526; 92611-TC; 97110-TC; 97112-TC; 97116-TC; 97530-TC; A4216; G0378; G0480; J0690; J0696; J0744; J1650; J2704; J3475; J3480; J3490; J7030; J7040; J7050; J7060; J7070; Q9967; U0003